=== PATIENT | male | born 1985 | race African-American/Black ===

== ENCOUNTER 2020-06-30 18:13 | Emergency (ER) | payer BC, SELFPAY ==
[2020-06-30 18:14] VITALS: BP 136/67; PULSE 73; RESP 20; TEMP 36.4; O2SAT 100
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
[2020-06-30 19:26] VITALS: BP 131/65; PULSE 81; RESP 16; TEMP 36.3; O2SAT 100
== END 2020-06-30 19:27 | disposition home or self-care (01) ==
PROVIDERS: Emergency Provider Family Medicine
DX: T33.011A Superficial frostbite of right ear, initial encounter (principal); X31.XXXA Exposure to excessive natural cold, initial encounter
CPT/HCPCS: 99281

== ENCOUNTER 2020-11-25 18:00 | Emergency (ER) | payer BC, SELFPAY ==
[2020-11-25 18:04] VITALS: BP 126/71; PULSE 68; RESP 12; TEMP 37.4; O2SAT 100
--- NOTE | 2020-11-25 18:29 | ED.GENADULT ---
HPI - General Adult General Chief complaint: Urogenital-Male Stated complaint: POS UTI Time Seen by Provider: 11/25/20 18:13 Source: patient and RN notes reviewed Mode of arrival: ambulatory Limitations: no limitations History of Present Illness HPI narrative: 35-year-old -[place] male presents with complaints of dysuria for the past 14 days. Kylee reports constant dysuria over the past 2 weeks. Increased po intake without relief. Dysuria consists of hesitation, pain and stinging. Denies fever or chills. Denies nausea, vomiting, and abdominal pain. Tolerating liquids well. No genital discharge. No concerns for STDs. No flank pain. Exacerbating factors urinating. Denies hematuria or genital bleeding. Remains active. The patient reports he has not been diagnosed with COVID-19. The patient reports he is not waiting for the results of a COVID-19 lab test. The patient reports he does not have weakness, fatigue, or myalgia. The patient reports he does not have a new or worsening cough or shortness of breath. The patient reports he does not have any rhinorrhea, congestion, loss of taste, sore throat, and diarrhea. Denies recent traveling. Denies concerns for COVID-19 or exposures. At this time, the patient is not suspected of having COVID-19. Some parts of this dictation were generated by voice recognition software and may contain typographical and/or grammatical inaccuracies Related Data Home Medications Medication Instructions Recorded Confirmed No Home Medications 11/25/20 11/25/20 Allergies Allergy/AdvReac Type Severity Reaction Status Date / Time No Known Allergies Allergy Verified 11/25/20 18:05 Review of Systems Review of Systems: Narrative: CONSTITUTIONAL: Denies fever, chills, sweats. EYES: Denies visual changes, redness, discharge. ENT: Denies rhinorrhea, congestion, sore throat, otalgia. CARDIOVASCULAR: Denies chest pain, palpitations, edema. RESPIRATORY: Denies dyspnea, wheezing, cough. GASTROINTESTINAL: Denies abdominal pain, nausea, vomiting, diarrhea. GENITOURINARY: Complains of dysuria (hesitation, pain and stinging). Denies hematuria, abnormal discharge. SKIN: Denies rash or itching. MUSCULOSKELETAL: Denies acute back pain, joint pain, or myalgia. NEUROLOGIC: Denies numbness or focal weakness. PSYCHIATRIC: Denies anxiety or depression. All other systems reviewed are negative, except as documented in HPI and below. [facility] Past Medical History Medical History (Updated 11/25/20 @ 19:42 by ISSA Krishnamurthy) No significant past medical history Surgical History Surgical History (Updated 11/25/20 @ 19:42 by ISSA Krishnamurthy) No significant past surgical history Family History Family History (Updated 11/25/20 @ 19:41 by ISSA Krishnamurthy) Father Unknown family medical history Mother Cervical cancer Social History Social History (Updated 11/25/20 @ 19:40 by ISSA Krishnamurthy) Smoking status: Never smoker Tobacco type: cigarettes Second hand tobacco smoke exposure: No Alcohol intake: never Substance use: never Substance use type: does not use Living arrangements: with family Occupation/Education: occupation Gender identity (if verbalized by the patient): Male Sexual Orientation (if Verbalized by the Patient): Straight or Heterosexual Comments At time of signature, agree with the nurse past medical, surgical, social, and family history.? There is no relevant family history pertinent to the presenting complaint. Exam Narrative: Exam Narrative: GENERAL: This is a well-nourished, well-developed patient, in no apparent distress. Talks in full sentences and ambulates with steady gait without dyspnea. HEAD: Normocephalic, atraumatic. EYES: PERRL. Sclera clear/white. Vision is grossly intact. CARDIOVASCULAR: Regular rate and rhythm without murmurs, gallops, or rubs. RESPIRATORY: Clear to auscultation. Breath
== END 2020-11-25 18:43 | disposition home or self-care (01) ==
PROVIDERS: Emergency Provider Nurse Practitioner Family
DX: R30.0 Dysuria (principal)
CPT/HCPCS: 81003; 87086; 99213; G0463

== ENCOUNTER 2022-07-14 10:16 | Emergency (ER) | payer BC, SELFPAY ==
--- NOTE | ~2022-07-14 | XR_ITS ---
Right Shoulder Technique: AP and scapular Y views were obtained. Clinical History: Pain Findings: No fracture or dislocation is seen. Osseous alignment is anatomic. The glenohumeral and acr omioclavicular joint spaces are preserved. Soft tissues are unremarkable. Impression: Unremarkable right shoulder radiographs. Reviewed, dictated and finalized at [facility]. OR TECHNICAL SPECIALIST Impression: Unremarkable right shoulder radiographs.
--- NOTE | ~2022-07-14 | XR_ITS ---
2 views the right clavicle Clinical HISTORY: Injury FINDINGS: No fracture or dislocation seen. Osseous alignment is anatomic. Soft tissues are unremarkab le. IMPRESSION: Unremarkable exam. Reviewed, dictated and finalized at [facility]. CREWMEMBER IMPRESSION: Unremarkable exam.
[2022-07-14 10:19] VITALS: BP 107/77; PULSE 70; RESP 16; TEMP 37.1; O2SAT 100
--- NOTE | 2022-07-14 12:48 | ED.UPPEXIN ---
HPI - Extremity Injury (Upper) General Chief Complaint: Extremity Injury, Upper Stated Complaint: shoulder pain Time Seen by Provider: 07/14/22 12:07 History of Present Illness HPI narrative: Patient is a 37-year-old male presenting with right shoulder pain. Patient states that he was at work yesterday moving heavy boxes when he felt a pop in his right shoulder. Since that time he has had pain in that shoulder. States it hurts to lift it up. States that he feels some burning and tingling in his upper arm. Denies neck pain or weakness. Denies further injuries or complaints. Related Data Allergies Allergy/AdvReac Type Severity Reaction Status Date / Time No Known Allergies Allergy Verified 11/25/20 18:05 Review of Systems Review of Systems: All systems reviewed & are unremarkable except as noted in HPI and below PMFSH Past Medical History Medical History No significant past medical history Surgical History Surgical History No significant past surgical history Family History Family History Father Unknown family medical history Mother Cervical cancer Social History Social History Smoking status: Never smoker Tobacco type: cigarettes Second hand tobacco smoke exposure: No Alcohol intake: never Substance use: never Substance use type: does not use Living arrangements: with family Occupation/Education: occupation Gender identity (if verbalized by the patient): Male Sexual Orientation (if Verbalized by the Patient): Straight or Heterosexual Exam Narrative: GENERAL: Well-appearing, well-nourished, and in no acute distress. HEAD: Normocephalic, atraumatic. EYES: PERRLA and EOMI. ENT: Nares clear, no rhinorrhea or epistaxis. Mucous membranes moist. NECK: Supple. no midline tenderness CHEST: Clear to auscultation. No respiratory distress. HEART: Regular rate and rhythm. No murmur heard. Normal peripheral pulses. ABDOMEN: Soft, nontender, nondistended, normal active bowel sounds. EXTREMITIES: R shoulder ROM somewhat limited 2/2 pain; distal ROM intact, radial pulse 2+, no sensory deficits, tender along anterior glenohumeral joint as well as right trapezius SKIN: Warm, dry, no rash. NEURO: No focal deficits. Alert and oriented x3. PSYCH: Normal mood and affect. Course Vital Signs Vital signs: Vital Signs Temperature 98.8 F 07/14/22 10:19 Pulse Rate 70 07/14/22 10:19 Respiratory Rate 16 07/14/22 10:19 Blood Pressure 107/77 07/14/22 10:19 Pulse Oximetry 100 07/14/22 10:19 Oxygen Delivery Room Air 07/14/22 10:19 Temperature 98.8 F 07/14/22 10:19 Pulse Rate 70 07/14/22 10:19 Respiratory Rate 16 07/14/22 10:19 Blood Pressure 107/77 07/14/22 10:19 Pulse Oximetry 100 07/14/22 10:19 Oxygen Delivery Room Air 07/14/22 10:19 MDM - Extremity Injury (Upper) MDM Narrative Medical decision making narrative: Patient is a 37-year-old male presenting with right shoulder pain after moving a heavy box at work. Vitals within normal limits. Patient is well-appearing and in no acute distress. Exam remarkable for the above. Patient is declining pain medications at this time. States the pain is not that severe. X-rays of the shoulder and clavicle show no acute abnormalities. Patient is sore along his right trapezius into his right shoulder. I suspect he strained a muscle while moving heavy boxes. We will provide prescription for Flexeril and advised PCP follow-up. Appropriate return precautions given. Patient voiced understanding and is agreeable with plan. Discharged in stable condition. Differential Diagnosis Differential diagnosis: Likely dislocation of shoulder, fracture of humerus, fracture of clavicle and othe
== END 2022-07-14 13:25 | disposition home or self-care (01) ==
PROVIDERS: Emergency Provider Emergency Medicine
DX: S46.911A Strain of unspecified muscle, fascia and tendon at shoulder and upper arm level, right arm, initial encounter (principal); X50.0XXA Overexertion from strenuous movement or load, initial encounter
CPT/HCPCS: 73000; 73030; 99283

== ENCOUNTER 2024-12-11 12:27 | Emergency (ER) | payer OTHER, SELFPAY ==
[2024-12-11 12:40] VITALS: BP 119/70; PULSE 69; RESP 16; TEMP 36.7; O2SAT 98
[2024-12-11 13:34] VITALS: BP 115/78; PULSE 65; RESP 12; TEMP 36.6; O2SAT 100
--- NOTE | 2024-12-11 13:34 | ECG_ITS ---
Test Date: 2024-12-11 13:40:41 Measurements Intervals [place] Rate: 55 P: 69 TN: 145 QRS: 83 QRSD: 98 T: 56 QT: 406 QTc: 391 Interpretive Statements SINUS BRADYCARDIA BASELINE WANDER- I, III, AVR, AVL, AVF, V4-V5 BORDERLINE ECG No previous ECG available for comparison Electronically Signed On 12-12-2024 06:38:11 CDT by Yves Osorio D.O.
[2024-12-11] MEDS: LACTATED RINGERS 1,000 ML 999 ML IV CONT (13:53)
[2024-12-11 14:03] LABS: Hematocrit 46.3 % (42.0-52.0); Hemoglobin 15.3 g/dL (14.0-18.0); Immature Granulocyte Percent A 0.0 % (0-0.5); Lymphocytes Absolute Auto 2.07 K/mm3 (0.9-3.2); Mean Corpuscular HGB Conc 33.0 g/dl (32-36); Mean Corpuscular Hemoglobin 32.2 pg (26-34); Mean Corpuscular Volume 97.5 fl (80-100); Nucleated Red Blood Cells Absolute Auto 0.000 K/mm3 (0.0-0.012); Nucleated Red Blood Cells Perc 0.0 % (0.0-0.2); Platelet Count Result 156 k/mm3 (150-375); Red Blood Count 4.75 M/mm3 (4.6-6.20); White Blood Count 5.1 K/mm3 (4.5-10.0)
[2024-12-11 14:24] LABS: Alanine Aminotransferase 17 U/L (6-50); Albumin Level 4.8 g/dL (3.5-5.1); Alkaline Phosphatase 75 U/L (38-126); Anion Gap 7 mmol/L (4-12); Aspartate Amino Transferase 29 U/L (17-59); Bilirubin,Total 1.0 mg/dL (0.2-1.3); Blood Urea Nitrogen 10 mg/dL (9-20); Calcium 9.7 mg/dL (8.4-10.2); Carbon Dioxide 30 mmol/L (22-30); Chloride 103 mmol/L (98-107); Creatine Kinase 260 U/L (55-170); Estimated CRCL calculation 84 ml/min; Estimated Glomerular Filt Rate > 60; Glucose 88 mg/dL (65-110); Potassium 3.5 mmol/L (3.4-5.0); Sodium 140 mmol/L (137-145); Total Protein 7.8 g/dL (6.3-8.2)
[2024-12-11] MEDS: MECLIZINE HCL 25 MG TABLET PO (14:40)
[2024-12-11 15:19] VITALS: BP 120/78; PULSE 52; RESP 18; TEMP 36.9; O2SAT 100
--- NOTE | 2024-12-11 21:14 | ED_ITS ---
HPI - Dizziness General Chief Complaint: Dizziness Stated Complaint: DIZZINESS SINCE YESTERDAY. WORKS OUTSIDE Time Seen by Provider: 12/11/24 13:33 History of Present Illness HPI Narrative: Patient presents with dizziness, he states I feels like the room spinning around him, for started yesterday when he was coming out of his truck at work, he has had these episodes in the past but this has been quite persistent, associated with nausea. Also has sensation of ear fullness, otherwise no focal numbness or weakness or difficulty with speech. Related Data Allergies Allergy/AdvReac Type Severity Reaction Status Date / Time No Known Allergies Allergy Verified 11/25/20 18:05 Review of Systems 2 Review of Systems: All systems reviewed & are unremarkable except as noted in HPI and below PMFSH Past Medical History Medical History No significant past medical history Surgical History Surgical History No significant past surgical history Family History Family History Father Unknown family medical history Mother Cervical cancer Social History Social History Smoking status: Never smoker Tobacco type: cigarettes Second hand tobacco smoke exposure: No Alcohol intake: never Substance use: never Substance use type: does not use Living arrangements: with family Occupation/Education: occupation Gender identity (if verbalized by the patient): Male Sexual Orientation (if Verbalized by the Patient): Straight or Heterosexual Exam 2 Narrative: EXAMINATION OF ORGAN SYSTEMS/BODY AREAS: Constitutional: Vital signs per nursing GENERAL:[No acute distress, non-toxic appearing.] HEAD: Normal with no signs of head trauma. EYES: EOMI, conjunctiva normal, slight nystagmus ENT: Hearing grossly intact LUNGS: Nonlabored breathing. HEART: [Regular rate and rhythm] ABD: [Soft], [nontender to palpation] EXT: Normal range of motion SKIN: [No rashes or lesions.] NEURO: [Alert and oriented x 3. No gross focal sensory or strength deficits.] PSYCH: Normal affect Course Vital Signs Vital signs: Vital Signs Temperature 98.1 F 12/11/24 12:40 Pulse Rate 69 12/11/24 12:40 Respiratory Rate 16 12/11/24 12:40 Blood Pressure 119/70 12/11/24 12:40 Pulse Oximetry 98 12/11/24 12:40 Oxygen Delivery Room Air 12/11/24 12:40 Temperature 98.4 F 12/11/24 15:19 Pulse Rate 52 L 12/11/24 15:19 Respiratory Rate 18 12/11/24 15:19 Blood Pressure 120/78 12/11/24 15:19 Pulse Oximetry 100 12/11/24 15:19 Oxygen Delivery Room Air 12/11/24 13:34 MDM - Dizziness MDM Narrative Medical decision making narrative: Patient presents with vertigo, on exam get some slight nystagmus, I have very low concern for central cause given his otherwise benign exam, he is pretty well-appearing here, appears more positional, and he has been not having any other neurologic deficits and he has no risk factors for CVA. Did trial fluids and meclizine here, should decision making with patient will hold off on CT scan for now. And on re-evaluation, his symptoms have completely resolved. He is able to move his head around without symptoms. Given this I have even lower concern for central cause, however will have him follow-up with neurologist, with prescriptions for meclizine and nausea medicine as needed. Patient agreeable to plan with return precautions. Lab Data 12/11/24 13:55 12/11/24 13:55 Labs: Lab Results 12/11/24 Range/Units 13:55 WBC 5.1 (4.5-10.0) K/mm3 RBC 4.75 (4.6-6.20) M/mm3 Hgb 15.3 (14.0-18.0) g/dL Hct 46.3 (42.0-52.0) % MCV 97.5 (80-100) fl MCH 32.2 (26-34) pg MCHC 33.0 (32-36) g/dl RDW 13.4 (11.5-14.5) % Plt Count 156 (150-375) k/mm3 MPV 8.1 (7.4-10.4) fl Immature Gran % (Auto) 0.0 (0-0.5) % Neut % (Auto) 50.6 (45.5-73.1) % Lymph % (Auto) 40.7 (18.3-44.2) % Dickenson % (Auto) 7.7 (2.6-8.5) % Eos % (Auto) 0.8 (0-4.4) % Baso % (Auto) 0.2 (0.2-1.2) % Lymph # (Auto) 2.07 (0.9-3.2) K/mm3 Dickenson # (Auto) 0.4 (0.1-0.6) K/mm3 Eos # (Auto) 0.0 (0-0.3) K/mm3 Baso # (Auto) 0.0 (0.0-0.1) K/mm3 Abs Immat Gran (auto) 0.00 (0.00-0.031) K/mm3 Absolute Neuts (auto) 2.6 (1.3-6.7) K/mm3 Absolute Nucleated RBC 0.000 (0.0-0.012) K/mm3 Nucleated RBC % 0.0 (0.0-0.2) % Sodium 140 (137-145) mmol/L Potassium 3.5 (3.4-5.0) mmol/L Chloride 103 (98-107) mmol/L Carbon Dioxide 30 (22-30) mmol/L Anion Gap 7 (4-12) mmol/L BUN 10 (9-20) mg/dL Creatinine 1.11 (0.7-1.3) mg/dL Estim Creat Clear Calc 84 ml/min Estimated GFR > 60 (59 - ) Glucose 88 (65-110) mg/dL Calcium 9.7 (8.4-10.2) mg/dL Total Bilirubin 1.0 (0.2-1.3) mg/dL AST 29 (17-59) U/L ALT 17 (6-50) U/L Alkaline Phosphatase 75 (38-126) U/L Total Creatine Kinase 260 H (55-170) U/L Total Protein 7.8 (6.3-8.2) g/dL Albumin 4.8 (3.5-5.1) g/dL Discharge Plan Discharge Clinical Impression: Vertigo Patient Disposition: Home Condition: Stable Instructions: Vertigo (ED) Additional Instructions: Please try the medications as prescribed and follow up with the neurologist; you can always return to the ER if your symptoms return or worsen. Patient Language: Citizen Of [place] Prescriptions: New meclizine 25 mg tablet 25 mg PO TID PRN (Reason: dizziness or vertigo) Qty: 20 0RF ondansetron 4 mg tablet,disintegrating 4 mg PO Q8H PRN (Reason: nausea and vomiting) Qty: 14 0RF No Action ciprofloxacin HCl [Cipro] 500 mg tablet 500 mg PO Q12H 5 Days Qty: 10 0RF cyclobenzaprine 5 mg tablet 5 mg PO TID PRN (Reason: muscle spasm) Qty: 20 0RF Follow-up/Referrals: Reno Clemons MD [Physician] - 2 Days PHYSICIAN,HAND TUBE WINDER [Primary Care Provider] -
== END 2024-12-11 15:40 | disposition home or self-care (01) ==
PROVIDERS: Emergency Provider Emergency Medicine
DX: R42 Dizziness and giddiness (principal); R00.1 Bradycardia, unspecified
CPT/HCPCS: 36415; 80053; 82550; 85025; 93005; 96360; 99283; A9270; J7120